=== PATIENT | female | born 1955 | race African-American/Black ===

== ENCOUNTER 2019-04-04 08:59 | Inpatient (IN) ==
[2019-04-04] MEDS ORDERED: ACETAMINOPHEN 325 MG TABLET PO PRN (12:09)
[2019-04-04 13:13] LABS: Apearance,Urine CLEAR (Clear); Bilirubin,Urine Negative (Negative); Blood, Urine Small mg/dL (Negative); Glucose,Urine (UA) Negative (Negative); Ketones,Urine 5 mg/dL (Negative); Mucus,Urine Occasional /LPF (Occasional); Nitrite,Urine Negative (Negative); Protein,Urine 30 MG/DL; RBC,Urine 5 /HPF (0-4); Squamous Epithelial Cell,Urine Occasional /HPF (0-10); Urine Color Straw (Yellow); Urine Specific Gravity 1.013 (1.001-1.035); Urine Urobilinogen < 2.0 EU/DL (0.2-1.0); WBC,Urine 1 /HPF (0-6)
[2019-04-04 13:18] LABS: Barbiturates Screen,Urine Positive (Negative); Benzodiazepines Screen,Urine Negative (Negative); Cannabinoid Screen,Urine Negative (Negative); Opiate Screen,Urine Negative (Negative); Phencyclidine Screen,Urine Negative (Negative)
[2019-04-04 14:05] LABS: Risk Ratio 2.23; VLDL CHOLESTEROL 14.6 MG/DL
[2019-04-04] MEDS: ASPIRIN CHEW 81 MG TABLET PO SCH (18:17)
[2019-04-04] MEDS ORDERED: levETIRAcetam 500 MG TABLET PO SCH (21:00)
[2019-04-04] MEDS: TOPIRAMATE 200 MG TABLET PO SCH (21:10)
[2019-04-04] MEDS: levETIRAcetam 500 MG TABLET PO SCH (21:11)
[2019-04-05 04:36] LABS: Basophils # 0.1 10*3/uL (0.0-0.2); Basophils % 0.6 % (0.0-0.8); Eosinophils # 0.1 10*3/uL (0.0-0.87); Eosinophils % 0.7 % (0.00-10.9); Hematocrit 35.7 VOL% (35.7-47.0); Hemoglobin 10.8 GM/DL (12.0-16.0); Immature Granulocytes % 0.5 %; Immature Granulocytes Absolute 0.04 #; Lymphocytes # 2.1 10*3/uL (1.4-4.0); Lymphocytes % 25.9 % (21.3-54.2); Mean Corpuscular HGB Conc 30.3 GM/DL (32-36); Mean Corpuscular Volume 91.1 FL (87-102); Mean Platelet Volume 11.8 FL (9.6-12.0); Neutrophils % 65.3 % (38.7-73.9); Platelet Count 195 T/CUMM (130-400); Red Blood Count 3.92 MC/CUMM (3.8-5.5); Red Cell Distribution Width 14.9 % (9.3-17.3)
[2019-04-05 05:03] LABS: Albumin 3.2 G/DL (3.4-5.0); Bilirubin,Total 0.7 MG/DL (0.2-1.0); Calcium 8.9 MG/DL (8.5-10.1); Osmolality,Calculated 278.7 MOS/KG (273-304); Total Protein 7.6 G/DL (6.4-8.3)
[2019-04-05] MEDS ORDERED: PANTOPRAZOLE 40 MG TABLET PO SCH (09:00)
[2019-04-05] MEDS: ASPIRIN CHEW 81 MG TABLET PO SCH (10:38)
[2019-04-05] MEDS: levETIRAcetam 500 MG TABLET PO SCH (10:39)
[2019-04-05 12:10] VITALS: BP 126/62
[2019-04-05] MEDS: TOPIRAMATE 200 MG TABLET PO SCH (12:14)
== END 2019-04-05 14:40 | disposition home health service (06) | DRG 101 ==
LOC: N.4E 11:19 → SUATTDRO 11:19
PROVIDERS: ADMIT Internal Medicine; ATTEND Internal Medicine